=== PATIENT | female | born 1975 | race Caucasian/White ===

== ENCOUNTER 2016-12-25 00:16 | Emergency (ER) | payer OTHER ==
[~2016-12-25] VITALS: Ht 170.2 cm; Wt 70.3 kg
[2016-12-25 00:28] VITALS: BP 120/82
--- NOTE | 2016-12-25 00:40 | ED GI/GU/ABDOMINAL COMPLAINT ---
History of Present Illness General Chief Complaint: Female Urogenital Problems Stated Complaint: "PER PT ABD PAIN, VAG BLEEDING" Source: patient, family Exam Limitations: no limitations Vital Signs & Intake/Output Vital Signs & Intake/Output Vital Signs Date Time Temp Pulse Resp B/P B/P Pulse O2 O2 Flow FiO2 Mean Ox Delivery Rate 12/25 0028 97.8 68 18 120/82 98 Room Air Allergies Uncoded Allergies: FEATHERS (Severe, FACIAL SWELLING 08/17/15) Triage Note: PT TO ED FOR BURNING WITH URINATION AND HEMATURIA. +URINARY FREQUENCY. PT REPORTS "ITS DEFINITELY A UTI." HX OF SAME. "THE BLOOD MADE ME WORRIED." Triage Nurses Notes Reviewed? yes ? N Is pt currently ? No HPI: And 9 PM this evening the patient developed dysuria as well as urinary urgency and frequency. Similar symptoms in the past when she's had a UTI. At approximately 11:30 tonight she then began to have hematuria. Patient is never had blood in her urine before so she became concerned so comes in for evaluation. There is no fevers or chills. There is no abdominal pain. There is no flank pain. There is no nausea or vomiting. Past History Travel History Traveled to [place] past 21 day No Medical History Any Pertinent Medical History? 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 No Review of Systems Review of Systems Constitutional: Reports: no symptoms. Respiratory: Reports: no symptoms. Cardiovascular: Reports: no symptoms. GI: Reports: no symptoms. Genitourinary: Reports: see HPI, dysuria, frequency, hematuria, urgency. Musculoskeletal: Reports: no symptoms. Neurological/Psychological: Reports: no symptoms. Immunologic/Allergic: Reports: no symptoms. Physical Exam Physical Exam General Appearance: well developed/nourished, alert, awake, anxious, mild distress Head: atraumatic Eyes: Bilateral: PERRL, EOMI. Neck: normal inspection, supple Respiratory: normal breath sounds, chest non-tender, no respiratory distress, lungs clear Cardiovascular: regular rate/rhythm, normal peripheral pulses Gastrointestinal: normal bowel sounds, soft, non-tender, no organomegaly Back: normal inspection, normal range of motion, NO cva TENDERNESS Extremities: normal range of motion Neurologic/Psych: no motor/sensory deficits, awake, alert, oriented x 3, normal gait, normal mood/affect Skin: intact, normal color, warm/dry Core Measures ACS in differential dx? No Severe Sepsis Present: No Septic Shock Present: No Progress Differential Diagnosis: UTI/pyelo Plan of Care: Orders Procedure Date/time Status Add-on Test (ER Only) 12/25 104 Active URINE 12/25 21 Complete URINALYSIS 12/25 21 Complete Current Medications Sig/Toña Start time Last Medication Dose Stop Time Status Admin Ciprofloxacin 500 MG ONCE ONE 12/25 114 UNVr (Cipro) 12/26 115 Phenazopyridine HCl 100 MG ONCE ONE 12/25 114 UNVr (Pyridium) 12/26 115 Laboratory Tests 12/25/16 0030: Urinalysis LIGHT H, Urine Color PINK H, Urine Clarity HAZY H, Urine pH 7.0, Ur Specific [place] 1.010, Urine Protein TRACE H, Urine Ketones NEG, Urine Nitrite NEG, Urine Bilirubin NEG, Urine Urobilinogen 0.2, Ur Leukocyte Esterase LARGE H, Ur Microscopic SEDIMENT EXAMINED, Urine RBC 25-50 H, Urine WBC > 75 H, Ur Epithelial Cells RARE, Urine Bacteria MOD H, Urine Hemoglobin LARGE H, Urine Glucose NEG, Urine Test NEGATIVE Initial ED EKG: none Departure Departure Disposition: HOME OR SELF CARE Condition: Stable Clinical Impression Primary Impression: UTI (urinary tract infection) Qualifiers: Urinary tract infection type: acute cystitis Hematuria presence: with hematuria Qualified Code: N30.01 - Acute cystitis with hematuria Referrals: CHRISS VAUGHAN,SANTA (PCP/Family) Additional Instructions: DRINK PLENTY OF FLUIDS RETURN FOR ANY CONCERNS Departure Forms: Customer Survey General Discharge Information Prescriptions: Current Visit Scripts Ciprofloxacin HCl (Cipro) 1 TAB PO BID #10 TAB Phenazopyridine HCl (Pyridium) 1 TAB PO TID #9 TAB
[2016-12-25] MEDS ORDERED: CIPRO250 M1 PO (01:10)
[2016-12-25] MEDS ORDERED: PYRIDIUM200 M1 PO (01:10)
== END 2016-12-25 01:16 ==
LOC: ERH 00:16
DX: N39.0 Urinary tract infection, site not specified (principal)
CPT/HCPCS: 81001; 81025; 87086